=== PATIENT | female | born 1965 | race Caucasian/White ===

== ENCOUNTER 2018-06-22 16:44 | Emergency (ER) | payer BC ==
[2018-06-22] MEDS ORDERED: Ondansetron 4 MG Tab.DIS PO ONE (17:03)
[2018-06-22] MEDS ORDERED: Bupivacaine 0.5% 10 ML SDV INJECT ONE (17:03)
[2018-06-22] MEDS ORDERED: HYDROmorphone 1 MG/ML Syringe IM ONE (17:04)
[2018-06-22] MEDS ORDERED: Sodium Chloride 0.9% 1,000 ML IV ONE (17:05)
[2018-06-22] MEDS ORDERED: Sodium Chloride 0.9% 10 ML Syringe FLUSH PRN (17:05)
[2018-06-22] MEDS ORDERED: Ondansetron 4 MG/2 ML SDV IVPUSH ONE (17:06)
[2018-06-22] MEDS ORDERED: HYDROmorphone 0.5 MG/0.5 ML SYRINGE IVPUSH ONE (17:06)
--- NOTE | 2018-06-22 17:11 | EDM.PDOC ---
ED HPI GENERAL MEDICAL PROBLEM - General Chief Complaint: Trauma Stated Complaint: FELL OFF HORSE,LEFT ARM INJURY Time Seen by Provider: 06/22/18 16:55 Source of Information: Reports: Patient History Limitations: Reports: No Limitations - History of Present Illness INITIAL COMMENTS - FREE TEXT/NARRATIVE: Patient is a 53-year-old female who fell off a horse approximately 1.5 hours ago landing on the left wrist. The fall was approximately 3 feet. She did not hit her head. There was no loss consciousness. No injury to her back or neck. Pain is isolated to the left wrist. ER doc who is one of her friends attempted to reduce the fracture with no luck. She's been icing the affected extremity since the fall. Otherwise has no additional complaints. Treatments EMERGENCY DISPATCH OPERATOR: Reports: Other (see below) Other Treatments EMERGENCY DISPATCH OPERATOR: alvaro wrap Left Wrist Pain Score (Numeric/FACES): 10 - Related Data Allergies Allergy/AdvReac Type Severity Reaction Status Date / Time codeine Allergy Nausea Verified 06/22/18 17:06 Home Meds: Home Meds Acetaminophen/HYDROcodone [[place] 325-5 MG] 1 tab PO Q6H PRN #20 tablet 06/22/18 [Rx] Levothyroxine 125 mcg PO DAILY 06/22/18 [History] Ondansetron [Zofran ODT] 4 mg PO Q6H PRN #20 tab.dis 06/22/18 [Rx] Review of Systems - Review of Systems Review Of Systems: ROS reveals no pertinent complaints other than HPI. ED EXAM, GENERAL - Physical Exam Exam: See Below Exam Limited By: No Limitations General Appearance: Alert, WD/WN, Anxious Eye Exam: Bilateral Eye: EOMI, Normal Inspection, PERRL Ears: Hearing Grossly Normal Nose: Normal Inspection Throat/Mouth: Normal Voice, No Airway Compromise Head: Atraumatic, Normocephalic Neck: Normal Inspection, Supple, Non-Tender, Full Range of Motion Respiratory/Chest: No Respiratory Distress, Lungs Clear, Normal Breath Sounds, No Accessory Muscle Use, Chest Non-Tender Cardiovascular: Normal Peripheral Pulses, Regular Rate, Rhythm Peripheral Pulses: 2+: Radial (L), Radial (R) GI/Abdominal: Normal Bowel Sounds, Soft, Non-Tender Back Exam: Normal Inspection, Full Range of Motion. No: CVA Tenderness (L), CVA Tenderness (R), Paraspinal Tenderness, Vertebral Tenderness Extremities: Other (Obvious deformity to the distal radius of the left upper extremity. Pain with palpation. No sensory/motor deficits distally. Skin is pink warm and dry. No pain with palpation of the hand, fingers, upper forearm, elbow, upper arm, shoulder, clavicle on the affected extremity. No pain with palpation of the remaining extremities.) Neurological: Alert, Oriented, CN II-XII Intact, Normal Cognition, Normal Gait, No Motor/Sensory Deficits Psychiatric: Normal Affect, Anxious Skin Exam: Warm, Dry, Intact, Normal Color ED TRAUMA PROCEDURES - Additional/Other Procedure(s) Other (Free Text) Procedure(s): Hematoma block: Area prepped with chlorhexidine swabs. Utilize 10 mils of bupivacaine 0.5%. The skin anesthetized with 2 mL. Utilized a 19-gauge inch and a half needle to perform the hematoma block with adequate anesthetic. Patient was placed in a finger trap. Will allow the muscles to fatigue prior to reducing fracture. Course - Vital Signs Last Recorded V/S: Last Vital Signs Temp 98.1 F 06/22/18 17:01 Pulse 73 06/22/18 17:01 Resp 20 06/22/18 17:01 BP 157/112 H 06/22/18 17:01 Pulse Ox 98 06/22/18 17:01 - Orders/Labs/Meds Meds: Medications Discontinued Medications Generic Name Dose Route Start Last Admin Trade Name Ana Rosa PRN Reason Stop Dose Admin Bupivacaine HCl 10 ml 06/22/18 17:03 06/22/18 17:52 Sensorcaine-Mpf 0.5% INJECT 06/22/18 17:04 10 ml ONETIME ONE Administration Hydromorphone HCl 1 mg 06/22/18 17:04 06/22/18 17:48 Dilaudid IM 06/22/18 17:05 1 mg ONETIME ONE Administration Hydromorphone HCl 0.5 mg 06/22/18 17:06 06/22/18 17:44 Dilaudid IVPUSH 06/22/18 17:07 0.5 mg ONETIME ONE Administration Sodium Chloride 1,000 mls @ 999 mls/hr 06/22/18 17:05 06/22/18 17:40 Normal Saline IV 06/22/18 18:05 999 mls/hr ONETIME ONE Administration Ondansetron HCl 4 mg 06/22/18 17:03 06/22/18 17:52 Zofran Odt PO 06/22/18 17:04 4 mg ONETIME ONE Administration Ondansetron HCl 4 mg 06/22/18 17:06 06/22/18 17:41 Zofran IVPUSH 06/22/18 17:07 4 mg ONETIME ONE Administration Sodium Chloride 10 ml 06/22/18 17:05 06/22/18 17:51 Saline Flush FLUSH 10 ml ASDIRECTED PRN Administration Keep Vein Open - Re-Assessments/Exams Free Text/Narrative Re-Assessment/Exam: Discussed patient with Dr. De Los Santos. They have evaluated the patient within 20 minutes of arrival. Reviewed all studies with Dr. De Los Santos. Agrees with plan and disposition. He has personally examined the patient. X-ray of the left wrist will be obtained. She has a obvious deformity to the wrist. IV will be established with Dilaudid 0.5 mg IVP and Zofran 4 mg IVP. IV fluids will be started as well. Ordered bupivacaine 0.5% for hematoma block. X-ray of the left wrist: Reveals obvious distal radius fracture. I discussed with the patient risk, benefits, and alternative treatments to obtaining a hematoma block with fracture reduction. Risks being infection, increasing pain, inadequate anesthetic, inadequate reduction of fracture, nerve or vascular damage. Patient has voiced understandings and has no further questions or concerns. She agrees to proceed. 1754 with the assistance of Dr. Lester we proceeded to perform the hematoma block. Area was cleansed with chlorhexidine swabs 2. 1851 With the assistance of Dr. Lester reduced the distal radius fracture with short arm posterior and dorsal fiberglass splint applied. Post reduction films have been ordered. No sensory motor deficits postreduction. 1927 x-ray of the left wrist postreduction revealed acceptable reduction. THis was reviewed with Dr. Arriaga. Patient will be discharged home with instructions as documented. The patient remained hemodynamically stable while under my care in the E.D. I discussed the concerning symptoms for which to returnto the E.D. with the patient/family. The patient/family verbalized understanding. All questions were answered. Departure - Departure Time of Disposition: 18:58 Disposition: Home, Self-Care 01 Condition: Good Clinical Impression: Distal radius fracture, left Qualifiers: Encounter type: initial encounter Fracture type: closed Fracture morphology: unspecified fracture morphology Qualified Code(s): S52.502A - Unspecified fracture of the lower end of left radius, initial encounter for closed fracture - Discharge Information Prescriptions: Acetaminophen/HYDROcodone [[place] 325-5 MG] 1 tab PO Q6H PRN #20 tablet PRN Reason: Pain (Severe 7-10) Ondansetron [Zofran ODT] 4 mg PO Q6H PRN #20 tab.dis PRN Reason: Nausea Instructions: Wrist Fracture Treated With Immobilization Referrals: PCP,None [Ordering Only Provider] - Forms: ED Department Discharge Additional Instructions: Leave splint in place until evaluated by orthopedic surgeon. Please call surgeon of your choice this coming Monday to be evaluated this coming week for reevaluation. Elevate when able to reduce any swelling and pain. Apply ice to the affected area 4 times a day, 30 minutes in duration, do not apply ice directly on the skin. Keep splint clean and dry. Utilize ibuprofen 400-600 mg every 6 hours as needed for discomfort. Take with food and drink plenty of water. For severe pain take [place] one tab every 6 hours. May utilize Zofran 1 tablet every 6 hours for nausea and vomiting as well. Please return back to the ED if you develop any new or worsening symptoms.
== END 2018-06-22 19:40 | disposition home or self-care (01) ==
LOC: JD.ED 16:44
DX: S52.502A Unspecified fracture of the lower end of left radius, initial encounter for closed fracture (principal); V80.010A Animal-rider injured by fall from or being thrown from horse in noncollision accident, initial encounter; Z79.899 Other long term (current) drug therapy; Z88.5 Allergy status to narcotic agent
CPT/HCPCS: 25605; 73100; 73110; 96361; 96372; 96374; 96375; 99284; A9270; J1170; J2405; J3490; J7040; J7050